=== PATIENT | male | born 1965 | race Two or more races ===

== ENCOUNTER 2022-12-04 12:26 | Inpatient (IN) | payer OTHER ==
[2022-12-04] VITALS (34 sets, daily range): BP systolic 91–138; BP diastolic 48–89; PULSE 62–99; RESP 0–24; TEMP 97.5–98.4; O2SAT 92–100
[~2022-12-04] VITALS: Ht 167.6 cm; Wt 77.2 kg
[2022-12-04] MEDS ORDERED: ONDANSETRON HCL 4 MG/2 ML VIAL IV ONE (12:45)
[2022-12-04] MEDS ORDERED: MORPHINE SULFATE 4 MG/ML SYR/VIAL IV ONE (12:45)
[2022-12-04] MEDS ORDERED: HEPARIN SODIUM (PORCINE) 5000 UNITS/ML 1ML VIAL IV ONE ×2 (12:45→13:00)
[2022-12-04] MEDS ORDERED: ASPirin 325 MG TAB PO ONE (12:45)
[2022-12-04] MEDS ORDERED: HEPARIN DRIP/D5W 100UNITS/ML 250 ML IV SCH (13:00)
[2022-12-04] MEDS ORDERED: NITROGLYCERIN 0.4 MG SL TAB SL PRN (13:00)
[2022-12-04] MEDS ORDERED: CLOPIDOGREL BISULFATE 75 MG TAB PO ONE (13:00)
[2022-12-04] MEDS ORDERED: ONDANSETRON HCL 4 MG/2 ML VIAL IV PRN (13:00)
[2022-12-04] MEDS ORDERED: ACETAMINOPHEN 325 MG TAB PO PRN (13:00)
[2022-12-04] MEDS ORDERED: MORPHINE SULFATE 4 MG/ML SYR/VIAL IV PRN (13:00)
[2022-12-04] MEDS ORDERED: ANGIOMAX 250 MG VIAL IV ONE (13:02)
[2022-12-04] MEDS ORDERED: VERAPAMIL 2.5MG/ML INJ 2ML VIAL IV ONE (13:02)
[2022-12-04] MEDS ORDERED: fentaNYL CITRATE 100 MCG/2 ML VL ONE (13:02)
[2022-12-04] MEDS ORDERED: MIDAZOLAM HCL 2MG/2ML 2ml VIAL (1mg/ml) ONE (13:03)
[2022-12-04] MEDS ORDERED: SODIUM CHL 0.9% 50 ML ONE (13:03)
[2022-12-04] MEDS ORDERED: IODIXANOL 320MG/ML 100ML BTL IV ONE ×2 (13:03→13:56)
[2022-12-04] MEDS ORDERED: LIDOCAINE 2%HCL (LOCAL ANESTH.) INJ 20ML MDV ONE (13:03)
[2022-12-04 13:29] LABS: Basophils # (auto) 0 10 ^3/uL (0-0.2); Basophils % (auto) 0.2 % (0.0-2.0); Eosinophils # (auto) 0 10 ^3/uL (0-0.8); Eosinophils % (auto) 0.1 % (0.0-7.0); Hematocrit 45.7 % (41.0-53.0); Hemoglobin 15.3 g/dL (13.5-17.5); Lymphocytes # (auto) 0.7 10 ^3/uL (0.4-5.4); Mean Corpuscular Hemoglobin 30.9 pg (28.0-32.0); Mean Corpuscular Hgb Conc. 33.5 g/dL (32.0-36.0); Mean Corpuscular Volume 92.3 fL (80.0-100.0); Monocytes # (auto) 1.2 10 ^3/uL (0-1.3); Monocytes % (auto) 4.7 % (0.0-12.0); Neutrophils # (auto) 22.8 10 ^3/uL (1.6-8.6); Red Blood Cells 4.96 10^6/uL (4.5-5.90); Red Cell Distribution Width 13.8 % (11.8-14.3); White Blood Cell 24.8 10^3/uL (4.4-10.8)
[2022-12-04 13:41] LABS: INR 0.98 (0.9-1.15); Partial Thromboplastin Time 25.5 SEC (24.5-34.5); Prothrombin Time 10.3 sec (9.3-11.8)
[2022-12-04 13:53] LABS: Alanine Aminotransferase 26 U/L (7-40); Albumin 4.9 g/dL (3.2-4.8); Alkaline Phosphatase 62 U/L (46-116); Anion Gap 10 (5-15); Aspartate Aminotransferase 30 U/L (13-40); BUN/Creatinine Ratio 14.6 (10.0-20.0); Blood Urea Nitrogen 13 mg/dL (9-23); Calcium 10.1 mg/dL (8.7-10.4); Carbon Dioxide 22 mmol/L (20-30); Chloride 105 mmol/L (98-107); Glucose 145 mg/dL (74-106); Magnesium 2.2 mg/dL (1.6-2.6); Potassium 3.7 mmol/L (3.5-5.1); Sodium 137 mmol/L (136-145)
[2022-12-04 13:54] LABS: Bilirubin, Total 0.3 mg/dL (0.2-1.0)
[2022-12-04 13:55] LABS: Triglycerides 100 mg/dL (< 150)
[2022-12-04 13:56] LABS: LDL Cholesterol 120 mg/dL (< 100)
[2022-12-04 13:57] LABS: Cholesterol 194 mg/dL (< 200); HDL Cholesterol 62 mg/dL (40-59)
[2022-12-04] MEDS ORDERED: NITROGLYCERIN 50MG/250ML 250 ML IV ONE (14:13)
[2022-12-04] MEDS: NITROGLYCERIN 50MG/250ML 250 ML IV SCH (15:00)
[2022-12-04] MEDS: COLCHICINE 0.6 MG CAP PO SCH (21:38)
[2022-12-04] MEDS ORDERED: ATORVASTATIN 20 MG TAB PO SCH ×2 (22:00)
[2022-12-04] MEDS ORDERED: METOPROLOL TARTRATE 25 MG TAB PO SCH (22:00)
[2022-12-05] VITALS (45 sets, daily range): BP systolic 98–139; BP diastolic 53–86; PULSE 60–98; RESP 6–31; TEMP 98.3–98.7; O2SAT 93–98
[2022-12-05 03:44] LABS: Basophils # (auto) 0.1 10 ^3/uL (0-0.2); Basophils % (auto) 0.5 % (0.0-2.0); Eosinophils # (auto) 0.1 10 ^3/uL (0-0.8); Eosinophils % (auto) 0.3 % (0.0-7.0); Hematocrit 41.3 % (41.0-53.0); Hemoglobin 13.7 g/dL (13.5-17.5); Lymphocytes # (auto) 1.3 10 ^3/uL (0.4-5.4); Lymphocytes % (auto) 7.6 % (10.0-50.0); Mean Corpuscular Hemoglobin 30.7 pg (28.0-32.0); Mean Corpuscular Hgb Conc. 33.3 g/dL (32.0-36.0); Mean Corpuscular Volume 92.3 fL (80.0-100.0); Monocytes # (auto) 1.7 10 ^3/uL (0-1.3); Monocytes % (auto) 9.4 % (0.0-12.0); Neutrophils # (auto) 14.6 10 ^3/uL (1.6-8.6); Neutrophils % (auto) 82.2 % (37.0-80.0); Red Blood Cells 4.47 10^6/uL (4.5-5.90); Red Cell Distribution Width 14.1 % (11.8-14.3); White Blood Cell 17.7 10^3/uL (4.4-10.8)
[2022-12-05 03:56] LABS: Alanine Aminotransferase 75 U/L (7-40); Albumin 4.3 g/dL (3.2-4.8); Alkaline Phosphatase 45 U/L (46-116); Anion Gap 8 (5-15); Aspartate Aminotransferase 445 U/L (13-40); BUN/Creatinine Ratio 13.7 (10.0-20.0); Blood Urea Nitrogen 10 mg/dL (9-23); Carbon Dioxide 24 mmol/L (20-30); Chloride 104 mmol/L (98-107); Glucose 127 mg/dL (74-106); Potassium 3.7 mmol/L (3.5-5.1); Sodium 136 mmol/L (136-145)
[2022-12-05 03:57] LABS: Bilirubin, Total 0.6 mg/dL (0.2-1.0); Total Protein 6.7 g/dL (5.7-8.2)
[2022-12-05] MEDS: COLCHICINE 0.6 MG CAP PO SCH (09:02)
[2022-12-05] MEDS ORDERED: CLOPIDOGREL BISULFATE 75 MG TAB PO SCH (10:00)
[2022-12-05] MEDS ORDERED: LISINOPRIL 5 MG TAB PO SCH (10:00)
[2022-12-05] MEDS ORDERED: ASPirin 81 mg TAB PO SCH ×2 (10:00)
[2022-12-05] MEDS ORDERED: DOCUSATE SOD 100 MG CAP PO SCH (10:00)
[2022-12-05] MEDS ORDERED: LEVO137C3 PO (10:25)
[2022-12-05] MEDS: NITROGLYCERIN 50MG/250ML 250 ML IV SCH (15:00)
[2022-12-05] MEDS ORDERED: ASPI-543 PO ×2 (15:03→16:01)
[2022-12-05] MEDS ORDERED: CLOP75TA28 PO (15:03)
[2022-12-05] MEDS ORDERED: ATOR40TA52 PO (15:04)
[2022-12-05] MEDS ORDERED: EZET10TA22 PO (15:04)
[2022-12-05] MEDS ORDERED: LISI-275 PO (15:04)
[2022-12-05] MEDS ORDERED: METO25TA93 PO (15:04)
[2022-12-05] MEDS ORDERED: ATORVASTATIN 20 MG TAB PO SCH (22:00)
[2022-12-06] MEDS ORDERED: METOPROLOL SUCCINATE XL 50 MG TAB PO SCH (10:00)
[2022-12-06] MEDS ORDERED: LISINOPRIL 5 MG TAB PO SCH (10:00)
== END 2022-12-05 17:34 | disposition home or self-care (01) | DRG 321 ==
LOC: ER 12:26 → TELE 12:54 → ICU WEST 14:45
PROVIDERS: ADMIT Nurse Practitioner Family; ATTEND Nurse Practitioner Family
PROC: 027035Z Dilation of Coronary Artery, One Artery with Two Drug-eluting Intraluminal Devices, Percutaneous Approach (ICD-10-PCS; principal; 2022-12-04)
PROC: 4A023N7 Measurement of Cardiac Sampling and Pressure, Left Heart, Percutaneous Approach (ICD-10-PCS; 2022-12-04)
PROC: B211YZZ Fluoroscopy of Multiple Coronary Arteries using Other Contrast (ICD-10-PCS; 2022-12-04)
PROC: B215YZZ Fluoroscopy of Left Heart using Other Contrast (ICD-10-PCS; 2022-12-04)
DX: I21.09 ST elevation (STEMI) myocardial infarction involving other coronary artery of anterior wall (principal); I50.33 Acute on chronic diastolic (congestive) heart failure; I25.10 Atherosclerotic heart disease of native coronary artery without angina pectoris; E78.5 Hyperlipidemia, unspecified; E03.9 Hypothyroidism, unspecified; E66.9 Obesity, unspecified; F12.90 Cannabis use, unspecified, uncomplicated; Z80.9 Family history of malignant neoplasm, unspecified; Z87.891 Personal history of nicotine dependence; Z68.27 Body mass index [BMI] 27.0-27.9, adult
CPT/HCPCS: 36415; 80053; 80061; 83036; 83690; 83735; 83880; 84443; 84484; 85025; 85610; 85730; 87081; 92929; 92941; 93005; 93306; 93458; 96374; 96375; 99152; 99291; C1874; G0378; J2250; J2405; Q9967

== ENCOUNTER → 2022-12-17 | Outpatient (CLI) | payer OTHER ==
[~2022-12-17] MED LIST: ASPI-543 PO; ATOR40TA52 PO; CLOP75TA28 PO; EZET10TA22 PO; LEVO137C3 PO; LISI-275 PO; METO25TA93 PO
[2022-12-17 08:36] LABS: Basophils # (auto) 0.1 10 ^3/uL (0-0.2); Basophils % (auto) 0.8 % (0.0-2.0); Eosinophils # (auto) 0.2 10 ^3/uL (0-0.8); Eosinophils % (auto) 1.6 % (0.0-7.0); Hematocrit 45.3 % (41.0-53.0); Hemoglobin 15.2 g/dL (13.5-17.5); Lymphocytes # (auto) 1.3 10 ^3/uL (0.4-5.4); Lymphocytes % (auto) 12.6 % (10.0-50.0); Mean Corpuscular Hgb Conc. 33.6 g/dL (32.0-36.0); Mean Corpuscular Volume 92.2 fL (80.0-100.0); Monocytes # (auto) 0.8 10 ^3/uL (0-1.3); Monocytes % (auto) 7.8 % (0.0-12.0); Neutrophils # (auto) 7.8 10 ^3/uL (1.6-8.6); Neutrophils % (auto) 77.2 % (37.0-80.0); Red Blood Cells 4.91 10^6/uL (4.5-5.90); Red Cell Distribution Width 13.3 % (11.8-14.3); White Blood Cell 10.1 10^3/uL (4.4-10.8)
[2022-12-17 09:11] LABS: Alanine Aminotransferase 61 U/L (7-40); Albumin 4.5 g/dL (3.2-4.8); Alkaline Phosphatase 53 U/L (46-116); Anion Gap 6 (5-15); Aspartate Aminotransferase 29 U/L (13-40); BUN/Creatinine Ratio 14.3 (10.0-20.0); Blood Urea Nitrogen 13 mg/dL (9-23); Calcium 9.3 mg/dL (8.5-10.1); Carbon Dioxide 27 mmol/L (20-30); Chloride 106 mmol/L (98-107); Cholesterol 85 mg/dL (< 200); Glucose 104 mg/dL (74-106); LDL Cholesterol 34 mg/dL (< 100); Potassium 4.8 mmol/L (3.5-5.1); Sodium 139 mmol/L (136-145); Triglycerides 54 mg/dL (< 150)
[2022-12-17 09:12] LABS: Bilirubin, Direct 0.1 mg/dL (<0.3); Bilirubin, Total 0.3 mg/dL (0.2-1.0); HDL Cholesterol 40 mg/dL (40-59); Total Protein 7.1 g/dL (5.7-8.2)
== END | disposition home or self-care (01) ==
LOC: LAB 08:20
PROVIDERS: ATTEND Student in an Organized Health Care Education/Training Program
DX: I25.10 Atherosclerotic heart disease of native coronary artery without angina pectoris (principal); E78.5 Hyperlipidemia, unspecified; E03.9 Hypothyroidism, unspecified
CPT/HCPCS: 36415; 80053; 80061; 80076; 82947; 84443; 85025

== ENCOUNTER → 2022-12-27 | Outpatient (CLI) | payer OTHER | END | disposition home or self-care (01) | LOC: XYW 07:52 | PROVIDERS: ATTEND Student in an Organized Health Care Education/Training Program | DX: I25.2 Old myocardial infarction (principal); I51.89 Other ill-defined heart diseases; I25.5 Ischemic cardiomyopathy | CPT/HCPCS: 93306 ==

== ENCOUNTER → 2023-07-01 | Outpatient (CLI) | payer OTHER | END | disposition home or self-care (01) | LOC: XYW 09:51 | PROVIDERS: ATTEND Student in an Organized Health Care Education/Training Program | DX: I11.9 Hypertensive heart disease without heart failure (principal); I25.5 Ischemic cardiomyopathy; Z95.5 Presence of coronary angioplasty implant and graft | CPT/HCPCS: 93306 ==

== ENCOUNTER → 2024-05-02 | Outpatient (CLI) | payer OTHER ==
[~2024-05-02] VITALS: Ht 167.6 cm; Wt 72.6 kg
[2024-05-02] MEDS: REGADENOSON 0.4 MG/5 ML SYRG IV ONE ×2 (12:01→12:17)
--- NOTE | 2024-05-03 13:19 | DVHSR ---
APPROVED REPORT Exam: Nuclear Stress Test Indication: Atherosclerotic heart disease BMI: 0 Medical History Medical History: MD, Stents Stress Test Details Stress Test: Pharmacologic stress testing performed using 0.4 mg of regadenoson per 5 mL given IV ov er 10 seconds. HR Resting HR: 62 bpmMax Heart Rate (APMHR): 161.861330 bpm Max HR Achieved: 109 bpmTarget HR (85% APMHR): 136.114940 bpm % of APMHR: 67.70 Recovery HR: 91 bpm BP Resting BP: 125/76 mmHg Recovery BP: 139/68 mmHg ECG Resting ECG: Sinus Rhythm Clinical Reason for Termination: Completed protocol Nurse Comments Recieved pt. from [facility]. A/Ox4 on RA. Connected to return agent airport, VS stable. PIV flushes well. Reviewed POC. Pt. verbalized understanding of procedure including risks and side ef fects, agrees for stress testing. Lexiscan stress test performed per protocol. [facility] administered Cardiolite. Pt. tolerated well . Pt. stable, no change on exam. VS returned to baseline. Transferred to [facility] via wheelchair w/ te ch. 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 Time of rest injection: 1042 Date: 05/02/2024 Time of rest imagin Date: 05/02/2024 Administration Route: IV Administration Site: Right Arm Pharmacologic Stress Pharmacologic stress test was performed by injecting Regadenoson 0.4 mg IV push followed by the intra venous injection of 30.1 mCi of Tc-99m Sestamibi. Time of stress injection: 1218 Date: 05/02/2024 Time of stress imagin Date: 05/02/2024 Administration Route: IV Administration Site: Right Arm Gated Stress SPECT was performed 60 minutes after stress injection. The images were gated to evaluate regional wall motion and calculate left ventricular ejection fracti on. Stress only was performed in the Supine position. 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
== END | disposition home or self-care (01) ==
LOC: XYW 10:14
PROVIDERS: ATTEND Internal Medicine
DX: I25.10 Atherosclerotic heart disease of native coronary artery without angina pectoris (principal); I10 Essential (primary) hypertension; I25.2 Old myocardial infarction; I25.5 Ischemic cardiomyopathy
CPT/HCPCS: 93017; J2785; 78452